=== PATIENT | female | born 1975 | race African-American/Black ===

== ENCOUNTER 2022-03-13 19:12 | Emergency (ER) | payer BC ==
[~2022-03-13] VITALS: Ht 188 cm; Wt 80.2 kg
[2022-03-13 19:40] VITALS: BP 128/86
[2022-03-13] MEDS ORDERED: PENI500T MT (22:42)
== END 2022-03-13 23:17 | disposition home or self-care (01) ==
LOC: ER 19:12
DX: K08.531 Fractured dental restorative material with loss of material (principal); Z98.890 Other specified postprocedural states; Z90.49 Acquired absence of other specified parts of digestive tract
CPT/HCPCS: 99283

== ENCOUNTER 2022-03-14 05:21 | Emergency (ER) | payer SELFPAY ==
[~2022-03-14] VITALS: Ht 188 cm; Wt 79.5 kg
[~2022-03-14 05:21] MED LIST: PENI500T MT
[2022-03-14 05:34] VITALS: BP 128/87
== END 2022-03-14 07:01 | disposition home or self-care (01) ==
LOC: ER 05:21
DX: Z04.89 Encounter for examination and observation for other specified reasons (principal); Z90.49 Acquired absence of other specified parts of digestive tract
CPT/HCPCS: 99281